=== PATIENT | male | born 1935 | race Caucasian/White ===

== ENCOUNTER 2020-10-28 07:49 | Outpatient (CLI) | payer OTHER, SELFPAY ==
--- NOTE | ~2020-10-28 | US_ITS ---
EXAMINATION: US art doppler w press LE BI DATE: 10/28/2020 08:39 INDICATION: Peripheral vascular disease with decreased lower extremity pulses. TECHNIQUE: Segmental pressures and plethysmographic and Doppler waveforms of the brachial and lower e xtremity arteries were obtained. COMPARISON: None. FINDINGS: Right and left brachial artery pressures of 139 mm Hg and 145 mm Hg, respectively, are concordant (no rmal difference <= 30 mmHg). The right and left high-thigh pressure indices are 1.10 and 1.13, respec tively (normal > 1.2). The right ankle-brachial index (ADITI) is 0.74 (normal >= 0.9-1). The right great toe-brachial index (T BI) is 0.34 (normal >= 0.6-0.8). The right lower extremity segmental pressure gradients are increased between the right posterior tibial and dorsalis pedis arteries at the right ankle and the more proxi mal [id number] right popliteal artery as well as the corresponding arteries at the contralateral left ankle. (normal gradients <= 20-30 mmHg between adjacent levels on the same leg or the same level s on the two legs). Arterial waveforms are biphasic with brisk systolic upstrokes at the right common femoral, superficial femoral and popliteal arteries. Parvus and tardus waveforms with broadened syst olic peaks and mildly delayed upstrokes at the right posterior tibial and dorsalis pedis arteries. The left ADITI is 1.03. The left TBI is 0.46. The left lower extremity segmental pressure gradients are normal. Arterial waveforms are biphasic with brisk systolic upstrokes throughout the arteries of the left lower limb. IMPRESSION: 1. 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 Reviewed, dictated and finalized at location A. IMPRESSION: 1. 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
== END 2020-10-28 07:50 | disposition home or self-care (01) ==
LOC: ANHIMG 07:57
PROVIDERS: PCP Student in an Organized Health Care Education/Training Program; Visit Provider Student in an Organized Health Care Education/Training Program
DX: I73.9 Peripheral vascular disease, unspecified (principal)
CPT/HCPCS: 93923